=== PATIENT | female | born 1950 | race Asian ===

== ENCOUNTER 2017-12-27 10:22 | Emergency (ER) | payer MEDICARE, OTHER ==
[2017-12-27] MEDS ORDERED: DEXAMETHASONE 10 MG/ML VIAL PO STA (10:59)
--- NOTE | 2017-12-27 11:02 | ED Physician Documentation ---
PD HPI URI - Stated complaint Stated Complaint: COUGHING - Chief complaint Chief Complaint: Heent - History obtained from History obtained from: Patient - History of Present Illness Timing - onset: How many weeks ago (4) Timing duration: Weeks (4) Timing details: Gradual onset, Still present Associated symptoms: Nasal congestion, Rhinorrhea, Sore throat, Productive cough, Dyspnea Improves by: Rest, Medication Similar symptoms before: Diagnosis (bronchitis) Recently seen: Clinic - Additional information Additional information: 67-year-old female has had a cough productive of yellow and green phlegm for the past 4 weeks. She states she does have some shortness of breath but she is does not have enough to to cause her shortness of breath walking out to her car. She denies any ear pain she does have a dry throat she denies sinus pain but does have sinus congestion. Her cough is persisted over the past 4 weeks and she has been taking some cough suppressant if she does not take that she has coughing p aroxysms. She has been into see her primary care doctor and was prescribed a cough suppressant. Review of Systems Constitutional: denies: Fever Eyes: denies: Decreased vision Ears: denies: Ear pain Nose: reports: Rhinorrhea / runny nose, Congestion Throat: reports: Sore throat Cardiac: denies: Chest pain / pressure, Palpitations Respiratory: reports: Dyspnea, Cough GI: denies: Abdominal Pain, Nausea, Vomiting : denies: Dysuria, Frequency PD PAST MEDICAL HISTORY - Past Medical History Past Medical History: Yes Cardiovascular: Hypertension Respiratory: None Endocrine/Autoimmune: HyPOthyroidism GI: None : Incontinence HEENT: Glaucoma, Other Musculoskeletal: Gout - Past Surgical History Past Surgical History: Yes General: Colonoscopy - Present Medications Home Medications: Ambulatory Orders Medication Instructions Recorded Confirmed Atorvastatin Calcium [Lipitor] 10 mg PO DAILY 12/12/14 12/27/17 Levothyroxine [Synthroid] 150 mcg PO DAILY 12/12/14 12/27/17 Telmisartan [Micardis] 40 mg PO DAILY 12/12/14 12/27/17 Allopurinol 1 tab PO DAILY 12/27/17 12/27/17 Aspirin [Adult Aspirin] 1 tab PO DAILY 12/27/17 12/27/17 Azithromycin [Zithromax] 250 mg PO DAILY #6 tablet 12/27/17 Brimonidine Tartrate/Timolol 1 drops EACHEYE DAILY 12/27/17 12/27/17 [Combigan 0.2%-0.5% Eye Drops] Fluorometholone [Fml] 1 drops EACHEYE BID 12/27/17 12/27/17 Latanoprost/Pf [Latanoprost 0.005% 1 drops EACHEYE DAILY 12/27/17 12/27/17 Eye Drop] - Allergies Allergies/Adverse Reactions: Allergies Allergy/AdvReac Type Severity Reaction Status Date / Time No Known Drug Allergies Allergy Verified 12/27/17 10:45 - Social History Does the pt smoke?: No Smoking Status: Never smoker Does the pt drink ETOH?: No Does the pt have substance abuse?: No - Immunizations Immunizations are current?: Yes PD ED PE NORMAL - Vitals Vital signs reviewed: Yes (hypertensive ) - General General: Alert and oriented X 3, No acute distress, Well developed/nourished - HEENT HEENT: Atraumatic, PERRL, EOMI, Ears normal, Moist mucous membranes, Pharynx benign, Dentition benign - Neck Neck: Supple, no meningeal sign, No bony TTP - Cardiac Cardiac: RRR, No murmur - Respiratory Respiratory: No respiratory distress, Other (diminished breath sounds without rhonci or focal wheeze) - Abdomen Abdomen: Soft, Non tender - Back Back: No CVA TTP, No spinal TTP - Derm Derm: Normal color, Warm and dry, No rash - Extremities Extremities: No deformity, No edema - Neuro Neuro: Alert and oriented X 3, pet sitter 2-12 intact, No motor deficit, No sensory deficit, Normal speech Eye Opening: Spontaneous Motor: Obeys Commands Verbal: Oriented GCS Score: 15 - Psych Psych: Normal mood, Normal affect Results - Vitals Vitals: Vital Signs - 24 hr 12/27/17 10:26 Temperature 36.5 C Heart Rate 69 Respiratory 16 Rate Blood Pressure 149/97 H O2 Saturation 98 Oxygen O2 Source Room air PD MEDICAL DECISION MAKING - ED course Complexity details: reviewed old records, considered differential, d/w patient ED course: 67 y/o female with a bronchitis for the past month has persistent production of green and yellow phlem and today we have added antibiotic into her treatment after giving her a dose of decadron in the ED and I did not feel that an inhaler was necessary. - Sepsis Event Vital Signs: Vital Signs - 24 hr 12/27/17 10:26 Temperature 36.5 C Heart Rate 69 Respiratory 16 Rate Blood Pressure 149/97 H O2 Saturation 98 Oxygen O2 Source Room air Departure - Departure Disposition: 01 Home, Self Care Clinical Impression: Bronchitis Condition: Stable Instructions: ED Upper Resp Infec Abx Tx Follow-Up: ABENA ARDON MD [Primary Care Provider] - Prescriptions: Azithromycin [Zithromax] 250 mg PO DAILY #6 tablet
[2017-12-27] MEDS ORDERED: CHERRY SYRUP 10 ML UDC PO ONE (11:06)
[2017-12-27 11:21] VITALS: BP 129/83
== END 2017-12-27 11:20 | disposition home or self-care (01) ==
LOC: ED 10:22
DX: J40 Bronchitis, not specified as acute or chronic (principal); I10 Essential (primary) hypertension; E03.9 Hypothyroidism, unspecified
CPT/HCPCS: 99283; A9270

== ENCOUNTER 2018-02-08 09:11 | Day surgery (SDC) | payer MEDICARE, OTHER ==
[2018-02-08] MEDS ORDERED: LACTATED RINGERS 1,000 ML IV ONE (09:20)
[2018-02-08] MEDS ORDERED: MIDAZOLAM 2 MG/2 ML VIAL IVP ONE (10:18)
[2018-02-08] MEDS ORDERED: fentaNYL 250 MCG/5 ML VIAL IVP ONE (10:18)
[2018-02-08 12:07] VITALS: BP 126/62
== END 2018-02-08 09:12 | disposition home or self-care (01) ==
LOC: SDS 09:11
PROVIDERS: ATTEND Surgery
PROC: 0DBN8ZZ Excision of Sigmoid Colon, Via Natural or Artificial Opening Endoscopic (ICD-10-PCS; 2018-02-08)
PROC: 3E0H8GC Introduction of Other Therapeutic Substance into Lower GI, Via Natural or Artificial Opening Endoscopic (ICD-10-PCS; 2018-02-08)
PROC: 0DBL8ZZ Excision of Transverse Colon, Via Natural or Artificial Opening Endoscopic (ICD-10-PCS; principal; 2018-02-08 10:30)
DX: Z12.11 Encounter for screening for malignant neoplasm of colon (principal); D12.7 Benign neoplasm of rectosigmoid junction; D12.3 Benign neoplasm of transverse colon; K64.8 Other hemorrhoids; I10 Essential (primary) hypertension; E03.9 Hypothyroidism, unspecified; E78.5 Hyperlipidemia, unspecified
CPT/HCPCS: 45380; 45381; 45385; J3010; J7120

== ENCOUNTER 2018-02-10 01:20 | Emergency (ER) | payer MEDICARE, OTHER ==
[2018-02-10 01:44] LABS: BASOPHILS # (AUTO) 0.1 10^3/uL (0.0-0.1); BASOPHILS % (AUTO) 0.7 %; EOSINOPHILS # (AUTO) 0.2 10^3/uL (0.0-0.7); EOSINOPHILS % (AUTO) 2.7 %; HGB - HEMOGLOBIN 12.9 g/dL (12.0-16.0); LYMPHOCYTES # (AUTO) 1.3 10^3/uL (1.5-3.5); LYMPHOCYTES % (AUTO) 15.8 %; MEAN CORPUSCULAR HEMOGLOBIN 33.8 pg (27.0-31.0); MEAN CORPUSCULAR HGB CONC 33.8 g/dL (32.0-36.0); MEAN CORPUSCULAR VOLUME 100.1 fL (81.0-99.0); MEAN PLATELET VOLUME 9.6 fL (7.9-10.8); MONOCYTES # (AUTO) 0.8 10^3/uL (0.0-1.0); MONOCYTES % (AUTO) 9.8 %; NEUTROPHILS # (AUTO) 5.8 10^3/uL (1.5-6.6); PLT - PLATELET COUNT 143 10^3/uL (130-450); RED BLOOD COUNT 3.82 10^6/uL (4.20-5.40); RED CELL DISTRIBUTION WIDTH 13.7 % (12.0-15.0); WHITE BLOOD COUNT 8.2 x10^3/uL (4.8-10.8)
[2018-02-10] MEDS ORDERED: SODIUM CHLORIDE 0.9% 1,000 ML IV ONE (01:55)
--- NOTE | 2018-02-10 02:01 | ED Physician Documentation ---
History of Present Illness - Stated complaint Stated Complaint: FEELING FAINT - Chief complaint Chief Complaint: Neuro - History obtained from History obtained from: Patient, Family - History of Present Illness Timing: Enter time (99), Today - Additonal information Additional information: 67-year-old female who is recently had a colonoscopy done 2 days ago was asleep tonight when she developed dizziness and some nausea. She states when she is up and around she is very dizzy and lightheaded. She has not had these symptoms previously. Review of Systems Constitutional: denies: Fever, Chills, Myalgias, Fatigue Eyes: denies: Decreased vision Ears: denies: Ear pain Nose: denies: Rhinorrhea / runny nose, Congestion Throat: denies: Sore throat Cardiac: denies: Chest pain / pressure, Palpitations Respiratory: denies: Dyspnea, Cough GI: reports: Nausea. denies: Abdominal Pain, Vomiting, Constipation, Diarrhea : denies: Dysuria, Frequency Skin: denies: Rash Musculoskeletal: denies: Neck pain, Back pain, Extremity pain Neurologic: reports: Generalized weakness. denies: Focal weakness, Numbness PD PAST MEDICAL HISTORY - Past Medical History Cardiovascular: Hypertension, High cholesterol Respiratory: None Endocrine/Autoimmune: HyPOthyroidism GI: Colon polyps : None HEENT: Glaucoma Psych: None Musculoskeletal: Gout Derm: None - Past Surgical History Past Surgical History: Yes General: Colonoscopy - Present Medications Home Medications: Ambulatory Orders Medication Instructions Recorded Confirmed Atorvastatin Calcium [Lipitor] 10 mg PO DAILY 12/12/14 02/08/18 Levothyroxine [Synthroid] 50 mcg PO DAILY 12/12/14 02/08/18 Telmisartan [Micardis] 40 mg PO DAILY 12/12/14 02/08/18 Aspirin [Adult Aspirin] 1 tab PO DAILY 12/27/17 02/08/18 Brimonidine Tartrate/Timolol 1 drops EACHEYE DAILY 12/27/17 02/08/18 [Combigan 0.2%-0.5% Eye Drops] Fluorometholone [Fml] 1 drops EACHEYE BID 12/27/17 02/08/18 Latanoprost/Pf [Latanoprost 0.005% 1 drops EACHEYE DAILY 12/27/17 02/08/18 Eye Drop] Probenecid 500 mg PO DAILY 02/08/18 02/08/18 amLODIPine [Norvasc] 5 mg PO ONCE 02/08/18 02/08/18 - Allergies Allergies/Adverse Reactions: Allergies Allergy/AdvReac Type Severity Reaction Status Date / Time No Known Drug Allergies Allergy Verified 12/27/17 10:45 - Social History Does the pt smoke?: No Smoking Status: Never smoker Does the pt drink ETOH?: No Does the pt have substance abuse?: No - Immunizations Immunizations are current?: Yes PD ED PE NORMAL - Vitals Vital signs reviewed: Yes (hypertensive) - General General: Alert and oriented X 3, No acute distress, Well developed/nourished - HEENT HEENT: Atraumatic, PERRL, EOMI, Ears normal, Pharynx benign, Other (dry mucous m embranes and no nystagmus on lateral views. ) - Neck Neck: Supple, no meningeal sign, No bony TTP - Cardiac Cardiac: RRR, No murmur - Respiratory Respiratory: No respiratory distress, Clear bilaterally - Abdomen Abdomen: Soft, Non tender - Back Back: No CVA TTP, No spinal TTP - Derm Derm: Normal color, Warm and dry, No rash - Extremities Extremities: No deformity, No edema - Neuro Neuro: Alert and oriented X 3, airport maintenance chief 2-12 intact, No motor deficit, No sensory deficit, Normal speech Eye Opening: Spontaneous Motor: Obeys Commands Verbal: Oriented GCS Score: 15 - Psych Psych: Normal mood, Normal affect Results - Vitals Vitals: Vital Signs - 24 hr 02/10/18 01:20 Temperature 36.6 C Heart Rate 68 Respiratory 18 Rate Blood Pressure 180/88 H O2 Saturation 99 Oxygen O2 Source Room air - EKG (time done) 0136 Rate: Rate (enter#) (66) Rhythm: NSR QRS: LVH Computer interpretation: Agree with computer - Labs Labs: Laboratory Tests 02/10/18 02/10/18 02/10/18 01:40 01:50 01:50 WBC 8.2 RBC 3.82 L Hgb 12.9 Hct 38.3 MCV 100.1 H MCH 33.8 H MCHC 33.8 RDW 13.7 Plt Count 143 MPV 9.6 Neut # (Auto) 5.8 Lymph # (Auto) 1.3 L [place] # (Auto) 0.8 Eos # (Auto) 0.2 Baso # (Auto) 0.1 Absolute Nucleated RBC 0.01 Nucleated RBC % 0.1 Sodium 140 Potassium 3.7 Chloride 106 Carbon Dioxide 25 Anion Gap 9.0 BUN 16 Creatinine 0.9 Estimated GFR (MDRD) 62 L Glucose 129 H Calcium 9.4 Total Bilirubin 0.6 AST 25 ALT 19 Alkaline Phosphatase 110 Troponin I < 0.04 Total Protein 7.1 Albumin 4.0 Globulin 3.1 Albumin/Globulin Ratio 1.3 Lipase 54 H Urine Color Urine Clarity Urine pH Ur Specific Everest Urine Protein Urine Glucose (UA) Urine Ketones Urine Occult Blood Urine Nitrite Urine Bilirubin Urine Urobilinogen Ur Leukocyte Esterase Urine RBC Urine WBC Ur Squamous Epith Cells Urine Bacteria Ur Microscopic Review Urine Culture Comments 02/10/18 02:30 WBC RBC Hgb Hct MCV MCH MCHC RDW Plt Count MPV Neut # (Auto) Lymph # (Auto) Carl[place] # (Auto) Eos # (Auto) Baso # (Auto) Absolute Nucleated RBC Nucleated RBC % Sodium Potassium Chloride Carbon Dioxide Anion Gap BUN Creatinine Estimated GFR (MDRD) Glucose Calcium Total Bilirubin AST ALT Alkaline Phosphatase Troponin I Total Protein Albumin Globulin Albumin/Globulin Ratio Lipase Urine Color YELLOW Urine Clarity CLEAR Urine pH 7.5 Ur Specific Everest 1.010 Urine Protein NEGATIVE Urine Glucose (UA) NEGATIVE Urine Ketones NEGATIVE Urine Occult Blood NEGATIVE Urine Nitrite NEGATIVE Urine Bilirubin NEGATIVE Urine Urobilinogen 0.2 (NORMAL) Ur Leukocyte Esterase TRACE H Urine RBC None Seen Urine WBC 0-3 Ur Squamous Epith Cells FEW Squamous Urine Bacteria None Seen Ur Microscopic Review INDICATED Urine Culture Comments INDICATED Procedures - IVC sono (time) 0150 Bedside IVC sono: IVC measures (cm) (1.12), IVC collapsed c insp (cm) (complete), Dehydration (est >1 liter deficit) PD MEDICAL DECISION MAKING - ED course Complexity details: reviewed old records, reviewed results, re-evaluated patient, considered differential, d/w patient, d/w family ED course: 67-year-old female with the onset of lightheadedness and dizziness 2 days after colonoscopy is found to be dehydrated on interrogation of the inferior vena cava. IV saline is begun. Departure - Departure Disposition: 01 Home, Self Care Clinical Impression: Dehydration Condition: Stable Instructions: ED Dehydration Follow-Up: ABENA ARDNO MD [Primary Care Provider] -
[2018-02-10 02:12] LABS: ALBUMIN/GLOBULIN RATIO 1.3 (1.0-2.2); BILIRUBIN,TOTAL 0.6 mg/dL (0.2-1.0); CALCIUM 9.4 mg/dL (8.5-10.3); CREATININE 0.9 mg/dL (0.4-1.0); TOTAL PROTEIN 7.1 g/dL (6.7-8.2)
[2018-02-10 02:42] LABS: BILIRUBIN,URINE NEGATIVE (NEGATIVE); CLARITY,URINE CLEAR (CLEAR); GLUCOSE, URINE (UA) NEGATIVE (NEGATIVE); KETONES,URINE (UA) NEGATIVE (NEGATIVE); LEUKOCYTE ESTERASE, URINE TRACE (NEGATIVE); NITRITE,URINE NEGATIVE (NEGATIVE); OCCULT BLOOD,URINE NEGATIVE (NEGATIVE); PH,URINE 7.5 PH (5.0-7.5); PROTEIN,URINE NEGATIVE (NEGATIVE); UROBILINOGEN,URINE 0.2 (NORMAL) E.U./dL (NORMAL)
[2018-02-10 02:47] LABS: BACTERIA,URINE None Seen /HPF (None Seen); RBC,URINE None Seen /HPF (0-5); SQUAMOUS EPITHELIAL CELL,UR FEW Squamous (<= Few)
[2018-02-10] MEDS ORDERED: ACETAMINOPHEN 325 MG TABLET PO STA (02:57)
[2018-02-10 03:26] VITALS: BP 171/74
== END 2018-02-10 03:54 | disposition home or self-care (01) ==
LOC: ED 01:20
DX: E86.0 Dehydration (principal); R94.31 Abnormal electrocardiogram [ECG] [EKG]; I10 Essential (primary) hypertension; E03.9 Hypothyroidism, unspecified; E78.00 Pure hypercholesterolemia, unspecified
CPT/HCPCS: 36415; 80053; 81001; 83690; 84484; 85025; 87086; 93005; 96360; 99284; A9270; 81003

== ENCOUNTER 2018-11-04 13:14 | Outpatient (CLI) | payer MEDICARE, OTHER ==
--- NOTE | 2018-11-05 08:48 | DEXA Report ---
Reason: HISTORY OF OSTEOPENIA Procedure Date: 11/04/2018 Accession Number: [id number] / [id number] Procedure: DEX - Dexa Spine and/or Hip CPT Code: FULL RESULT: EXAM: Dexa Spine and/or Hip DATE: 11/04/2018 1:50 PM CLINICAL HISTORY: HISTORY OF OSTEOPENIA TECHNIQUE: Dual energy x-ray absorptiometry (DXA) was performed on a [employer] System. Regions measured are the AP Spine, femoral neck, and if needed forearm. COMPARISON: 10/31/2015. In accordance with the International Society for Clinical Densitometry (ISCD) guidelines, data from previous exams may be reanalyzed using current recommendations and techniques. This is done to allow a more accurate basis for comparison with the current study. FINDINGS: The data for the lumbar spine is as follows: BMD (g/cm/cm) T-SCORE Z-SCORE REGION L1 1.064 -0.6 1.2 L2 1.214 0.1 1.9 L3 1.341 1.2 3.0 L4 1.395 1.6 3.4 TOTAL 1.272 0.8 2.5 NOTE: All evaluable vertebrae are used for classification The data for the hip is as follows: BMD (g/cm/cm) T-SCORE Z-SCORE REGION Neck 0.848 -1.4 0.4 TOTAL 0.922 -0.7 0.9 NOTE: The femoral neck or total proximal femur, whichever is lowest, is used for classification. DXA RESULTS SUMMARY: Spine SCAN DATE AGE BMD CHANGE VS CHANGE VS PREVIOUS PREVIOUS % [birth year][age]04/[age] 1[age]272 0.025 2.0 10/31/2015 65.4 1.247 * Denotes significant change at the 95% confidence level. Denotes dissimilar scan types or analysis methods. DXA RESULTS SUMMARY: Hip SCAN DATE AGE BMD CHANGE VS CHANGE VS PREVIOUS PREVIOUS % [birth year][age]04/2018 68.5 0.922 -0.012 -1.3 10/31/2015 65.4 0.934 * Denotes significant change at the 95% confidence level. Denotes dissimilar scan types or analysis methods. IMPRESSION: THE WHO CLASSIFICATION BASED ON THE INTERNATIONAL REFERENCE STANDARD IS OSTEOPENIA. THE FRACTURE RISK IS INCREASED. RECOMMENDATION: Patients with diagnosis of osteoporosis or osteopenia should have regular bone mineral density assessment. For those eligible for Medicare, routine testing is allowed once every 2 years. Testing frequency can be increased for patients who have rapidly progressing disease or for those who are receiving medical therapy to restore bone mass. COMMENT: World Health Organization (WHO) definitions for osteoporosis and osteopenia: NORMAL BMD: T-score at -1.0 or higher, fracture risk is low OSTEOPENIA BMD: T-score between -1.0 and -2.5, fracture risk is increased. OSTEOPOROSIS BMD: T-score at -2.5 or lower, fracture risk is high. National Osteoporosis Foundation recommends: 1. Obtain adequate dietary calcium (at least 1200 mg per day) and vitamin D (400-800 international units per day). 2. Participate, as appropriate, in regular weightbearing and muscle-strengthening exercise. 3. Avoid tobacco use and reduce alcohol and caffeine intake. 4. For more detailed information see the website at www.NOF.org.
== END 2018-11-04 13:15 | disposition home or self-care (01) ==
LOC: DI 13:14
PROVIDERS: ATTEND Internal Medicine
DX: M85.88 Other specified disorders of bone density and structure, other site (principal)
CPT/HCPCS: 77080

== ENCOUNTER 2020-04-19 08:36 | Outpatient (CLI) | payer MEDICARE, OTHER ==
[2020-04-19 09:50] VITALS: BP 119/70
--- NOTE | 2020-04-19 09:50 | SLEEP CARE CONSULTATION ---
Information from patient questionnaire entered by Dee Dee Huddleston. I have reviewed and concur with the information entered by Dee Dee Huddleston. This document represents the service I personally performed and the decisions made by me, Khalida Thakur ARNP. History of Present Illness Service Date and Time: 04/19/2020 0836 Reason for Visit: New patient Chief Complaint: reports: Unrefreshed sleep (sometimes kind a tired), Snoring, Excessive daytime sleepiness, Frequent awakenings at night. denies: Observed pauses in breathing Date of Onset: 1 year Usual bedtime: 10 pm Time it takes to fall asleep: 5-10 minutes Snores at night: Yes Observed to quit breathing while asleep: No Sleeps alone due to snoring: No Number of times waking at night: 2-3 Reasons for waking at night: reports: Snoring, Gasping for air, Bathroom, Other (startled; dryness in throat). denies: Choking Toss, Turn, or Twitch while sleeping: Yes Recalls having dreams: Yes Usually gets out of bed at: 5 am Feels refreshed in the morning: No (kind of) Morning headache: No Sleepy or fatigued during the day: Yes Ever fallen asleep while driving: Yes (stop and rest; no accidents) Takes day naps: Yes (sometimes; 1 time a week if she does) Dreams during day naps: Yes Prior sleep studies: No Additional HPI information: I had the pleasure of seeing VERONIQUE SMITH today regarding the possibility of her having a sleep disorder. Her current complaints are snoring and excessive daytime sleepiness. She talked to her doctor about falling asleep when reading or doing quiet activities. She also snores and she also talks during sleep. She tells me her mouth and throat is dry when she sleeps and in the morning. She states when she drives she feels sleepy but does not fall asleep. - Parasomnia Symptoms Ever been unable to move upon waking from sleep: No Walks in sleep: No Talks in sleep: Yes Ever acted out dreams in sleep: No Ever felt weak in the knees when startled or emotional: No Bothered by creepy, crawly, restless sensations in legs: No Problems with memory or concentration: Yes (sometimes) Subjective Initial [place] Sleepiness Scale score: 20 (in 2020) Past Medical History Past Medical History: reports: Hypertension, Claustrophobia, Gout, Depression, Other (reflux, dry mouth, glaucoma). denies: Diabetes (may be borderline), Ar rythmia, Anxiety, GERD Social History The patient's occupation is a Retired. Patient is and lives in [place]. Have you smoked in the past 12 months: No Alcohol use: No Caffeine use: Yes Caffeine amount and frequency: seldom, coffee Family History Family history of sleep disordered breathing: Yes (sister, daughter-has sleep apnea, treated) Family Hx Sleep Apnea: Sibling: Snoring, Sleep apnea - Treated Allergies and Home Medications Drug allergies reviewed: Yes (allopurinal) Home medication list reviewed: Yes Allergy and home medication list: HCTZ Refresh tears Aspirin Latanoprost drops Lipitor Micardis Probenecid Flaxseed Calcium Vitamin C Review of Systems Cardiovascular: reports: high blood pressure Respiratory: reports: shortness of breath (walking uphill) Gastrointestinal: reports: difficulty swallowing (dry mouth) Urinary: reports: incontinence, frequency, urgency Neurological: reports: gait or balance problems (balance) Psychiatric: reports: anxiety, depression Ear/Nose/Throat: reports: nasal congestion, nose bleeds (sometimes), dry mouth/throat, wisdom teeth removed. denies: tonsillectomy (she is not sure if she has one or not) Endocrine: reports: increased urination Immunologic: reports: rash, itching Physical Exam Blood Pressure: 119/70 Cuff size: wrist Heart Rate: 65 O2 Saturation: 96 Height: 5 ft Weight: 138 lb Body Mass Index: 26.9 BMI Classification: Overweight Neck circumference: 13.75 (inches) Nostrils: patent to airflow Turbinates: normal Septum: midline Mouth and throat: narrow oropharynx Soft palate: normal Hard palate: Torus palatinus (very minimal) Uvula: normal Uvula visualization: 25% Mallampati Class III Tongue: enlarged in size with teeth poe on lateral edges Neck: normal w/o lymphadenopathy or thyromegaly Heart: regular rate and rhythm Lungs: clear bilaterally Impression and Plan 1. Suspected Obstructive Sleep Apnea-Hypopnea Syndrome, as suggested by a history of loud and irregular snoring, gasping or choking in sleep, frequent awakening during the night, unrefreshed sleep, cognitive impairment, and excessive daytime sleepiness. I reviewed with the patient that a narrow oropharynx and obesity are common predisposing factors for obstructive sleep apnea-hypopnea syndrome. I recommend proceeding to polysomnography to confirm the diagnosis and to assess severity. If the patient has significant sleep disordered breathing, a manual CPAP titration study will also be performed to find the optimal treatment pressure. I informed the patient of what the sleep studies involve and after some discussion, obtained agreement to proceed. The pathophysiology of obstructive sleep apnea-hypopnea syndrome was discussed with the patient and health risks of cardiovascular and cerebrovascular disease if not treated. Risks of drowsy driving discussed in detail and patient advised to avoid long distance driving and to pulley mortiser operator at the first sign of drowsiness. Patient agreed to plan. * Schedule polysomnography +- manual CPAP titration study and return in 1-2 weeks after the study to discuss result and initiate therapy. * Avoid long distance driving or driving when feeling sleepy. * Avoid sedative and muscle relaxant around bedtime. * Attempt to lose weight. * Review instructions provided by trained office staff on how to prepare for the sleep study. * Return for follow-up after sleep study completed. Counseling Topics: Weight loss health impact Visit Type: In Office Time Spent with Patient (minutes): 33 Provider Statement: I spent 100% of the Face to Face Visit with the patient with greater than 50% spent counseling the patient and coordination of care.
== END 2020-04-19 08:37 | disposition home or self-care (01) ==
LOC: SC 08:36
PROVIDERS: ATTEND Nurse Practitioner Family
DX: G47.10 Hypersomnia, unspecified (principal); R41.89 Other symptoms and signs involving cognitive functions and awareness; G47.8 Other sleep disorders; R06.83 Snoring; E66.3 Overweight; Z68.26 Body mass index [BMI] 26.0-26.9, adult
CPT/HCPCS: 99203; G0463; 99212

== ENCOUNTER 2020-08-15 20:42 | Outpatient (CLI) | payer MEDICARE, OTHER | END 2020-08-15 20:43 | disposition home or self-care (01) | LOC: SC 20:42 | PROVIDERS: ATTEND Nurse Practitioner Family | DX: G47.33 Obstructive sleep apnea (adult) (pediatric) (principal); G47.61 Periodic limb movement disorder; E66.3 Overweight; Z68.26 Body mass index [BMI] 26.0-26.9, adult | CPT/HCPCS: 95810 ==

== ENCOUNTER 2020-08-23 08:09 | Outpatient (CLI) | payer MEDICARE, OTHER ==
--- NOTE | 2020-08-23 08:26 | SLEEP CARE CONSULTATION ---
Information from patient questionnaire entered by Ryanne Delgadillo. I have reviewed and concur with the information entered by Ryanne Delgadillo. This document represents the service I personally performed and the decisions made by , Khalida Thakur ARNP. History of Present Illness Service Date and Time: 08/23/2020 0800 Initial [place] Sleepiness Scale score: 20 (in 2020) Current [place] Sleepiness Scale score: 20 Additional HPI information: VERONIQUE SMITH returns via Telehealth visit for follow up and results of the recently performed polysomnography. I explained the pathophysiology behind obstructive sleep apnea. We then spent quite a bit of time discussing different treatment options. For mild obstructive sleep apnea, surgery and oral appliance are alternatives to nasal CPAP therapy but in moderate or severe cases, nasal CPAP is the most effective and reliable treatment. After some discussion, the patient opted to go with the nasal CPAP therapy. Nasal autoCPAP set at 4-15 cmH20 will be ordered with rationale explained. A manual titration study will be ordered if unable to find optimal pressure with office adjustments. I explained how CPAP machine works and what to expect when using the machine. Using CPAP every night in order to get used to it was emphasized. Patient advised to put CPAP mask on before getting into bed so as not to fall asleep without CPAP. To assist acclimation to CPAP use, it could also be used for a short time during day while reading or watching TV. The patient was instructed to call the CPAP supplier to discuss any mechanical problem that may occur. If the mask given is uncomfortable or is difficult to keep on through the night even with adjustment, contact the CPAP supplier as many will replace with another mask style if notified before 30 days. If snoring or perceives is not getting enough air or too much air from the machine, notify this office. Patient counseled not drink alcohol less than 4 hours before bedtime as it can increase snoring and apnea. Patient was cautioned about risks of drowsy driving until sleepiness symptoms resolve. Sleep Study - Results Type of Sleep Study: Home sleep study Polysomnography/Home Sleep Study results: IMPRESSION: The quality of the study is good. The patient had normal sleep efficiency. Except for mild sleep fragmentation, the sleep architecture was normal. Respiratory monitoring showed moderate obstructive sleep apneahypopnea (AHI = 18.8) associated with frequent arousals, oxyhemoglobin desaturation and moderate hypoxia (miah oxygen saturation of 66%). Baseline oxygen saturation was normal. The respiratory events occurred mainly during REM sleep. The patient only slept supine during this study (supine AHI = 18.8; non-supine = 0.00). Snore was moderate in intensity. There was severe periodic leg movement of sleep not associated with sleep fragmentation. Cardiac rhythm was normal sinus rhythm without significant arrhythmia. No abnormal behavior (parasomnia) observed during the night. CONCLUSIONS and RECOMMENDATIONS: 1. The patient has moderate obstructive sleep apnea-hypopnea. ICD-10 G47.33. Positive airway pressure therapy is indicated. Other types of therapy such as upper airway surgery and oral appliance may be considered depending of clinical findings. A follow up manual CPAP/bi-level titration study is recommended to find the optimal treatment pressure if positive airway pressure therapy is going to be utilized. With BMI of 26.9 Kg/M2, some weight loss is also recommended. 2. Periodic leg movement (ICD G47.61), severe, treatment may be indicated. Clinical correlation advised. Allergies and Home Medications Home medication list reviewed: Yes (no changes) Review of Systems Review of systems same as previous: Yes (no changes) Physical Exam Vital signs obtained and entered by: Telehealth visit to reduce exposure during Covid pandemic Height: 5 ft Impression and Plan 1. Obstructive Sleep Apnea-Hypopnea Syndrome, moderate, with lowest oxygen saturation of 66%. Obviously this is the cause of the patients symptoms of unrefreshed sleep, and excessive daytime sleepiness. Positive pressure therapy could benefit hypertension, depressiono and gastric reflux. As mentioned above, the patient will be started on nasal autoCPAP therapy with pressure set at 4-15 cmH2O. A manual titration study will be completed if unable to find optimal treatment pressure with office adjustments. Compliance guidelines also reviewed. A copy of compliance guidelines will be given for reference at check out. 2. Hypoxemia, moderate. Her miah oxygen saturation of 66%). Her baseline oxygen saturation was normal. 3. Periodic limb movement, severe, that did not fragment patients sleep. Periodic limb movement of sleep (PLMS) is characterized by episodes of repetitive limb movements that occur during sleep and usually involve the lower limbs. Patient was advised that further evaluation may be indicated. * Nasal auto CPAP therapy, pressure at 4-15 cm H2O. * Follow up with PCP for severe PLMs * Attempt to lose weight. * Avoid alcohol consumption near bedtime. * Avoid supine sleep until using CPAP. * The patient is again cautioned about driving until sleepiness completely resolves. * Return one month after CPAP obtained. I will assess response to therapy and compliance at that time. Counseling Topics: Weight loss health impact Visit Type: Telehealth Video Video Type: VSee Patient Location: Home Location of Provider: Office Patient agrees and consents to this telehealth visit type: Yes Patient agrees to have their insurance billed: Yes Time Spent with Patient (minutes): 17 Provider Statement: I spent 100% of the Telehealth Video Call with the patient with greater than 50% spent counseling the patient and coordination of care.
== END 2020-08-23 08:10 | disposition home or self-care (01) ==
LOC: SC 08:09
PROVIDERS: ATTEND Nurse Practitioner Family
DX: G47.33 Obstructive sleep apnea (adult) (pediatric) (principal); G47.61 Periodic limb movement disorder; E66.3 Overweight; Z68.26 Body mass index [BMI] 26.0-26.9, adult

== ENCOUNTER 2021-04-10 10:50 | Day surgery (SDC) | payer MEDICARE, OTHER ==
[2021-04-10] MEDS ORDERED: LACTATED RINGERS 1,000 ML IV ONE ×2 (10:57→13:49)
--- NOTE | 2021-04-10 11:47 | ANESTHESIA ---
Pre-Anesthesia VS, & Labs - Diagnosis screening - Procedure colonoscopy Vital Signs: Temp Pulse Resp BP Pulse Ox 36.4 C L 66 16 158/82 H 100 04/10/21 10:58 04/10/21 10:58 04/10/21 10:58 04/10/21 10:58 04/10/21 10:58 Height: 5 ft Weight (kg): 59.4 kg Body Mass Index: 25.5 BMI Classification: Overweight - NPO >8 hours - Is Patient ?: No Home Medications and Allergies Home Medications: Ambulatory Orders Calcium Carbonate [Calcium] 1,200 mg PO DAILY 04/10/21 flaxseed oiL [Flaxseed Oil] 1,000 mg PO DAILY 04/10/21 Atorvastatin Calcium [Lipitor] 10 mg PO DAILY 12/12/14 Telmisartan [Micardis] 40 mg PO DAILY 12/12/14 Aspirin [Adult Aspirin] 1 tab PO DAILY 12/27/17 Brimonidine Tartrate/Timolol [Combigan 0.2%-0.5% Eye Drops] 1 drops EACHEYE DAILY 12/27/17 Fluorometholone [Fml] 1 drops EACHEYE BID 12/27/17 Latanoprost/Pf [Latanoprost 0.005% Eye Drop] 1 drops EACHEYE DAILY 12/27/17 Probenecid 500 mg PO DAILY 02/08/18 Calcium Carbonate [Calcium] 1,200 mg PO DAILY 04/10/21 flaxseed oiL [Flaxseed Oil] 1,000 mg PO DAILY 04/10/21 Allergies/Adverse Reactions: Allergies Allergy/AdvReac Type Severity Reaction Status Date / Time No Known Drug Allergies Allergy Verified 05/25/19 08:15 Anes History & Medical History - Anesthetic History Anesthesia Complications: reports: No previous complications - Medical History Cardiovascular: reports: Hypertension, High cholesterol Pulmonary: reports: None Gastrointestinal: reports: Colon polyps Urinary: reports: None Musculoskeletal: reports: Gout Endocrine/Autoimmune: reports: HyPOthyroidism Skin: reports: None Smoking Status: Never smoker History of Cancer?: No - Surgical History General: reports: Colonoscopy Exam General: Alert, Oriented x3 Dental: WNL Mouth Opening: Greater than 4 Fingerbreadths Neck Mobility: Normal Mallampati classification: II Respiratory: Lungs clear Cardiovascular: Regular rate Plan Anesthesia Type: Total IV Consent for Procedure(s) Verified and Reviewed: Yes Code Status: Attempt Resuscitation ASA classification: 2-Mild systemic disease Is this case an emergency?: No
[2021-04-10] MEDS ORDERED: PROPOFOL 500 MG/50 ML 500 MG/50 ML VIAL ONE (12:35)
[2021-04-10] MEDS ORDERED: PROPOFOL 200 MG/20 ML VIAL IVP ONE (12:53)
[2021-04-10 14:27] VITALS: BP 149/78
== END 2021-04-10 10:51 | disposition home or self-care (01) ==
LOC: SDS 10:50
PROVIDERS: ATTEND Surgery
PROC: 0DBP8ZZ Excision of Rectum, Via Natural or Artificial Opening Endoscopic (ICD-10-PCS; 2021-04-10)
PROC: 0DBP8ZZ Excision of Rectum, Via Natural or Artificial Opening Endoscopic (ICD-10-PCS; principal; 2021-04-10 11:45)
DX: Z12.11 Encounter for screening for malignant neoplasm of colon (principal); D12.8 Benign neoplasm of rectum
CPT/HCPCS: 45380; 45385; J7120